=== PATIENT | male | born 1980 | race Caucasian/White ===

== ENCOUNTER 2016-10-06 13:22 | Emergency (ER) | payer BC ==
--- NOTE | 2016-10-06 14:24 | ED CLINICAL REPORT ---
Clinical Report - Physicians/Mid Levels [facility] [address] [place] [address] 10/06/2016 13:23 Patient: BRAULIO GLASS Time Seen: 14:26 Oct 06 2016. Arrived- By private vehicle. Historian- patient. HISTORY OF PRESENT ILLNESS Chief Complaint: HEADACHE. Is still present. 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 Located in the frontal region and region of the left eye. No preceding symptoms, blurred vision or associated nausea. (Generalized headache over the left side, thigh, last 10 days, similar to his previous migraine-like headaches in the past. Patient denies any nausea or vomiting, some light sensitivity, has tried [id number] medications with no relief. Has a future follow-up appointment with his primary care provider. Denies any trauma. Denies neck pain. Denies cough. Denies rhinorrhea or congestion.). REVIEW OF SYSTEMS No fever, sinus pressure, ear pain, sore throat or difficulty breathing. No skin rash. All systems otherwise negative, except as recorded above. SOCIAL HISTORY Never smoker. No alcohol use. ADDITIONAL NOTES The nursing notes have been reviewed. PHYSICAL EXAM Vital Signs: 10/06/2016 13:34 BP: 144/104. HR: 81. RR: 16. O2 saturation: 99%. Temp: 98.4 F. Appearance: Alert. Eyes: Pupils equal, round and reactive to light. Eyes normal inspection. ENT: Nose normal. Neck: Normal inspection. No meningeal signs. CVS: Normal heart rate and rhythm. Heart sounds normal. Respiratory: No respiratory distress. Abdomen: Soft. No abdominal tenderness or organomegaly. Neuro: Oriented X 3. Alert. Mood/affect normal. Cranial nerves normal (as tested). No cerebellar findings. No motor deficit. PROGRESS AND PROCEDURES Course of Care: Ongoing headache for almost 10 days, with history of similar, most consistent with migraine-like headaches, no additional systemic symptoms at this time. Patient drove himself here, wishes to drive home. Suspicion for sever hemorrhage, meningitis, hemorrhage is low. Patient is stable. Symptoms better. Patient/family counseled. Differential Diagnosis: I considered vascular etiology, migraine, cluster headache, vascular dissection, malignant hypertension, cerebral venous thrombosis, bacterial meningitis and encephalitis as a possible cause of headache in this patient. This is a partial list of diagnoses considered. Disposition: Discharged. CLINICAL IMPRESSION Migraine headache. INSTRUCTIONS Do not work today, tomorrow. Warnings: Further evaluation is necessary. Prescription Medications: Zofran (orally disintegrating tablets) 4 mg: take 1 orally every 6 hours. Dispense ten (10). No refill. Fioricet with Codeine: Take 1-2 orally every 4 hours as needed for headache. Dispense twenty (20). No refills. Substitution is permissible. Follow-up: Follow up with your doctor. Understanding of the discharge instructions verbalized by patient. (Electronically signed by Josefina Sims P.A.-C 10/06/2016 14:31)
--- NOTE | 2016-10-06 14:24 | ED ORDER SUMMARY ---
..... Patient: BRAULIO GLASS OrderSheet [facility] VisitID: [id number] [address] [place] [address] 36y, M Registration Date/Time: 10/06/2016 ORDER SHEET Weight: 77.1 kg (stated) Allergies: Naproxen GENERAL ORDERS: MEDICATION ORDERS: IV FLUIDS: IV NS : initial bolus 1000 mL (1000 mL/hr), then 1000 mL/hr for X1 (NOW); Raheel (13:42 10/06/2016 EKoroleva P.A.-C) (14:02 ASchmuck) Toradol IV 30 mg (NOW) (13:42 10/06/2016 EKoroleva P.A.-C) (14:02 ASchmuck) Zofran IV 4 mg (NOW) (13:42 10/06/2016 EKoroleva P.A.-C) (14:02 ASchmuck) ORDER SHEET NOTES: [Electronically signed by Ivette Lea (14:26 10/06/2016)] [Electronically signed by Josefina Sims P.A.-C (14:31 10/06/2016)] [Electronically locked/signed by Ivette Lea (14:10/06/2016)]
--- NOTE | 2016-10-06 14:24 | ED CLINICAL REPORT ---
Clinical Report - Physicians/Mid Levels [facility] [address] [place] [address] 10/06/2016 13:23 Patient: BRAULIO GLASS Time Seen: 14:26 Oct 06 2016. Arrived- By private vehicle. Historian- patient. HISTORY OF PRESENT ILLNESS Chief Complaint: HEADACHE. Is still present. 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 Located in the frontal region and region of the left eye. No preceding symptoms, blurred vision or associated nausea. (Generalized headache over the left side, thigh, last 10 days, similar to his previous migraine-like headaches in the past. Patient denies any nausea or vomiting, some light sensitivity, has tried [id number] medications with no relief. Has a future follow-up appointment with his primary care provider. Denies any trauma. Denies neck pain. Denies cough. Denies rhinorrhea or congestion.). REVIEW OF SYSTEMS No fever, sinus pressure, ear pain, sore throat or difficulty breathing. No skin rash. All systems otherwise negative, except as recorded above. SOCIAL HISTORY Never smoker. No alcohol use. ADDITIONAL NOTES The nursing notes have been reviewed. PHYSICAL EXAM Vital Signs: 10/06/2016 13:34 BP: 144/104. HR: 81. RR: 16. O2 saturation: 99%. Temp: 98.4 F. Appearance: Alert. Eyes: Pupils equal, round and reactive to light. Eyes normal inspection. ENT: Nose normal. Neck: Normal inspection. No meningeal signs. CVS: Normal heart rate and rhythm. Heart sounds normal. Respiratory: No respiratory distress. Abdomen: Soft. No abdominal tenderness or organomegaly. Neuro: Oriented X 3. Alert. Mood/affect normal. Cranial nerves normal (as tested). No cerebellar findings. No motor deficit. PROGRESS AND PROCEDURES Course of Care: Ongoing headache for almost 10 days, with history of similar, most consistent with migraine-like headaches, no additional systemic symptoms at this time. Patient drove himself here, wishes to drive home. Suspicion for sever hemorrhage, meningitis, hemorrhage is low. Patient is stable. Symptoms better. Patient/family counseled. Differential Diagnosis: I considered vascular etiology, migraine, cluster headache, vascular dissection, malignant hypertension, cerebral venous thrombosis, bacterial meningitis and encephalitis as a possible cause of headache in this patient. This is a partial list of diagnoses considered. Disposition: Discharged. CLINICAL IMPRESSION Migraine headache. INSTRUCTIONS Do not work today, tomorrow. Warnings: Further evaluation is necessary. Prescription Medications: Zofran (orally disintegrating tablets) 4 mg: take 1 orally every 6 hours. Dispense ten (10). No refill. Fioricet with Codeine: Take 1-2 orally every 4 hours as needed for headache. Dispense twenty (20). No refills. Substitution is permissible. Follow-up: Follow up with your doctor. Understanding of the discharge instructions verbalized by patient. (Electronically signed by Josefina Sims P.A.-C 10/06/2016 14:31)
--- NOTE | 2016-10-06 14:24 | ED ORDER SUMMARY ---
..... Patient: BRAULIO GLASS OrderSheet [facility] VisitID: [id number] [address] [place] [address] 36y, M Registration Date/Time: 10/06/2016 ORDER SHEET Weight: 77.1 kg (stated) Allergies: Naproxen GENERAL ORDERS: MEDICATION ORDERS: IV FLUIDS: IV NS : initial bolus 1000 mL (1000 mL/hr), then 1000 mL/hr for X1 (NOW); Raheel (13:42 10/06/2016 EKoroleva P.A.-C) (14:02 ASchmuck) Toradol IV 30 mg (NOW) (13:42 10/06/2016 EKoroleva P.A.-C) (14:02 ASchmuck) Zofran IV 4 mg (NOW) (13:42 10/06/2016 EKoroleva P.A.-C) (14:02 ASchmuck) ORDER SHEET NOTES: [Electronically signed by Ivette Lea (14:26 10/06/2016)] [Electronically signed by Josefina Sims P.A.-C (14:31 10/06/2016)] [Electronically locked/signed by Ivette Lea (14:10/06/2016)]
--- NOTE | 2016-10-06 14:24 | ED NURSING NOTES ---
Clinical Report - Nurses [facility] [address] [place] [address] 10/06/2016 13:23 Patient: BRAULIO GLASS TRIAGE Triage time 13:28 Oct 06 2016. Acuity: LEVEL 4. Chief Complaint: MIGRAINE HEADACHE. 13:34 10/06/16. Alert. No acute distress. SEPSIS SCREEN: Sepsis Screen. Negative (no infection suspected/documented). NAVYA COMA SCORE: [place] Coma Scale: 15- eyes open spontaneously (4); best verbal response- oriented x 4 (5); best motor response- obeys commands (6). --13:34 Ivette Lea 13:34 10/06/16. BP: 144/104. HR: 81. RR: 16. O2 saturation: 99%. Temp: 98.4 F. Pain level now 04/05. --13:34 Ivette Lea. Weight: 77.1 kg stated. Height/Length: 70 inches Per Patient. BMI: 24.4. --13:33 Ivette Lea. Medications None. --13:32 Ivette Lea. Medication/allergy information source: the patient. --13:34 Ivette Lea. Allergies Naproxen. ("made me feel like I had the flu") --13:32 Ivette Lea. History Arrived by private vehicle. Historian: patient. Unaccompanied. Primary physician ([facility]). This started About a week and a half ago. ( Pt reports that he is having a migraine today. He normally gets headaches, but today's is more intense. Has had a few concussions in the past. Has been seen by PCP for this issue before. Reports pressure behind his eyes, more on the left side. Is nauseous and has been vomiting. Believes that his speech has been slurred, which has happened before, "only with the bad ones." Has blurred vision.). He has had nausea and vomiting. No weakness, numbness, fever or sinus pain. Treatment ARTISTS' MODEL: (3 200 mg aspirin). PAST MEDICAL HX: Headaches. Head injury. No history of diabetes mellitus or hypertension. Immunizations: status is unknown. SOCIAL HX: Never smoker. No alcohol use or drug use. No recent travel. He has had contact with a sick individual. (daughter had cold). FALL RISK ASSESSMENT: Fall risk assessment completed. No fall risk identified. NUTRITIONAL RISK ASSESSMENT: The nutritional risk assessment revealed no deficiencies. FUNCTIONAL ASSESSMENT: Functional assessment: no impairments noted. LEARNING NEEDS ASSESSMENT: The learning needs assessment revealed no barriers. SKIN INTEGRITY ASSESSMENT: Skin integrity risk assessment completed. No skin integrity risk identified. --13:34 Ivette Lea. PROBLEMS: Migraine Headache. Back Pain. Low back pain, disc injury . Dental Pain. Abscess. Dental Caries. Hernia. --13:33 Ivette Lea. ADDITIONAL SURGERIES: Hernia Repair. --13:33 Ivette Lea. Interventions ID band on patient. --13:34 Ivette Lea. PHYSICAL ASSESSMENT 13:35 10/06/16. Ambulatory to room. GENERAL / NEURO / PSYCH: Alert. Oriented X 4. Appears in no acute distress. Speech within normal limits. HEENT: No facial asymmetry noted. Pupils equal, round and reactive to light. RESPIRATORY: Respirations not labored. CVS: Capillary refill less than 2 seconds. GI / : Abdomen soft and nontender. SKIN: Skin is warm and dry. --13:35 Ivette Lea. NURSING PROGRESS NOTES 13:35 10/06/16. The plan of care for this patient has been created. Head of bed elevated. Reassurance given. Lights dimmed. Two patient identifiers checked. Call light placed in reach. Side rails up x 1. Bed placed in lowest position. Brakes of bed on. Patient ready for evaluation- chart flagged and ED physician and PA notified. --13:35 Ivette Lea 13:51 10/06/2016 Site #1 started via IV in the right forearm with an 20g angiocath, with aseptic technique and good blood return; one attempt. Blood drawn: rainbow set. Labeled in the presence of the patient and sent to the lab. Saline lock flushed with 10 mL saline. --14:01 Ivette Lea 13:57 10/06/2016 Started bag #1 1000 mL IV Fluids IV NS (Saline); at 1000 mL/hr over 1 hour(s) via site #1 via IV pump. Allergies verified and confirmed 5 rights. IV patency established. IV site checked: no pain, redness, or swelling. IV flushed thoroughly pre- and post-medication administration. --14:02 Ivette Lea 13:59 10/06/2016 Zofran (Ondansetron HCl) IVP 4 mg given over 1 minute(s) via site #1. Allergies verified and confirmed 5 rights. IV patency established. IV site checked: no pain, redness, or swelling. IV flushed thoroughly pre- and post-medication administration. IVP given by RN. --14: Ivette Lea 14:10/06/2016 Toradol IVP 30 mg given over 1 minute(s) via site #1. Allergies verified and confirmed 5 rights. IV patency established. IV site checked: no pain, redness, or swelling. IV flushed thoroughly pre- and post-medication administration. IVP given by RN. --14: Ivette Lea 14:22 10/06/2016 Site #1 removed upon discharge. Catheter intact. Pressure dressing applied. --14:22 Ivette Lea 14:22 10/06/2016 IV Fluids IV NS Discontinued: bag #1 discontinued upon discharge. Total amount infused: 250 mL. IV patency established. IV site checked: no pain, redness, or swelling. IV flushed thoroughly. (Verbal order from ALYSE). --14:22 Ivette Lea. DISPOSITION / DISCHARGE 14:24 10/06/16. Departure time: 14:24 Oct 06 2016. Condition at departure: improved. The goals identified in the patient's plan of care were met. No learning barriers present. Discharge instructions provided and reviewed with the patient. Reviewed warnings (Patient verbalized understanding of sedation warning for Rx medications. Pt verbalized awareness of warning s/sx listed in dc paperwork.). Reviewed medication(s) side effects, precautions, dosing and course information. Prescription(s) given to the patient (Fioricet with codeine, zofran). Treatments reviewed. Reviewed referral to a primary care physician for followup. Patient verbalized understanding. Written instructions provided in Ecuadorean. The patient was discharged by the physician operations assistant. He was discharged home and unaccompanied at time of discharge. He left the Emergency Department ambulatory and via private vehicle. Patient driving. FALL RISK ASSESSMENT: Fall risk assessment completed. No fall risk identified. --14:24 Ivette Lea 14:23 10/06/16. BP: deferred. HR: deferred. RR: deferred. O2 saturation: deferred. Temp: deferred. Pain level now: 12/04. 13:28 10/06/16. BP: 144/104. HR: 81. RR: 16. O2 saturation: 99%. Temp: 98.4 F. Pain level now 04/05. --14:24 Ivette Lea. Locked/Released at 10/06/2016 14:26 by Ivette Lea,
--- NOTE | 2016-10-06 14:24 | ED NURSING NOTES ---
Clinical Report - Nurses [facility] [address] [place] [address] 10/06/2016 13:23 Patient: BRAULIO GLASS TRIAGE Triage time 13:28 Oct 06 2016. Acuity: LEVEL 4. Chief Complaint: MIGRAINE HEADACHE. 13:34 10/06/16. Alert. No acute distress. SEPSIS SCREEN: Sepsis Screen. Negative (no infection suspected/documented). NAVYA COMA SCORE: [place] Coma Scale: 15- eyes open spontaneously (4); best verbal response- oriented x 4 (5); best motor response- obeys commands (6). --13:34 Ivette Lea 13:34 10/06/16. BP: 144/104. HR: 81. RR: 16. O2 saturation: 99%. Temp: 98.4 F. Pain level now 04/05. --13:34 Ivette Lea. Weight: 77.1 kg stated. Height/Length: 70 inches Per Patient. BMI: 24.4. --13:33 Ivette Lea. Medications None. --13:32 Ivette Lea. Medication/allergy information source: the patient. --13:34 Ivette Lea. Allergies Naproxen. ("made me feel like I had the flu") --13:32 Ivette Lea. History Arrived by private vehicle. Historian: patient. Unaccompanied. Primary physician ([facility]). This started About a week and a half ago. ( Pt reports that he is having a migraine today. He normally gets headaches, but today's is more intense. Has had a few concussions in the past. Has been seen by PCP for this issue before. Reports pressure behind his eyes, more on the left side. Is nauseous and has been vomiting. Believes that his speech has been slurred, which has happened before, "only with the bad ones." Has blurred vision.). He has had nausea and vomiting. No weakness, numbness, fever or sinus pain. 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 PAST MEDICAL HX: Headaches. Head injury. No history of diabetes mellitus or hypertension. Immunizations: status is unknown. SOCIAL HX: Never smoker. No alcohol use or drug use. No recent travel. He has had contact with a sick individual. (daughter had cold). FALL RISK ASSESSMENT: Fall risk assessment completed. No fall risk identified. NUTRITIONAL RISK ASSESSMENT: The nutritional risk assessment revealed no deficiencies. FUNCTIONAL ASSESSMENT: Functional assessment: no impairments noted. LEARNING NEEDS ASSESSMENT: The learning needs assessment revealed no barriers. SKIN INTEGRITY ASSESSMENT: Skin integrity risk assessment completed. No skin integrity risk identified. --13:34 Ivette Lea. PROBLEMS: Migraine Headache. Back Pain. Low back pain, disc injury . Dental Pain. Abscess. Dental Caries. Hernia. --13:33 Ivette Lea. ADDITIONAL SURGERIES: Hernia Repair. --13:33 Ivette Lea. Interventions ID band on patient. --13:34 Ivette Lea. PHYSICAL ASSESSMENT 13:35 10/06/16. Ambulatory to room. GENERAL / NEURO / PSYCH: Alert. Oriented X 4. Appears in no acute distress. Speech within normal limits. HEENT: No facial asymmetry noted. Pupils equal, round and reactive to light. RESPIRATORY: Respirations not labored. CVS: Capillary refill less than 2 seconds. GI / : Abdomen soft and nontender. SKIN: Skin is warm and dry. --13:35 Ivette Lea. NURSING PROGRESS NOTES 13:35 10/06/16. The plan of care for this patient has been created. Head of bed elevated. Reassurance given. Lights dimmed. Two patient identifiers checked. Call light placed in reach. Side rails up x 1. Bed placed in lowest position. Brakes of bed on. Patient ready for evaluation- chart flagged and ED physician and PA notified. --13:35 Ivette Lea 13:51 10/06/2016 Site #1 started via IV in the right forearm with an 20g angiocath, with aseptic technique and good blood return; one attempt. Blood drawn: rainbow set. Labeled in the presence of the patient and sent to the lab. Saline lock flushed with 10 mL saline. --14:01 Ivette Lea 13:57 10/06/2016 Started bag #1 1000 mL IV Fluids IV NS (Saline); at 1000 mL/hr over 1 hour(s) via site #1 via IV pump. Allergies verified and confirmed 5 rights. IV patency established. IV site checked: no pain, redness, or swelling. IV flushed thoroughly pre- and post-medication administration. --14:02 Ivette Lea 13:59 10/06/2016 Zofran (Ondansetron HCl) IVP 4 mg given over 1 minute(s) via site #1. Allergies verified and confirmed 5 rights. IV patency established. IV site checked: no pain, redness, or swelling. IV flushed thoroughly pre- and post-medication administration. IVP given by RN. --14: Ivette Lea 14:10/06/2016 Toradol IVP 30 mg given over 1 minute(s) via site #1. Allergies verified and confirmed 5 rights. IV patency established. IV site checked: no pain, redness, or swelling. IV flushed thoroughly pre- and post-medication administration. IVP given by RN. --14: Ivette Lea 14:22 10/06/2016 Site #1 removed upon discharge. Catheter intact. Pressure dressing applied. --14:22 Ivette Lea 14:22 10/06/2016 IV Fluids IV NS Discontinued: bag #1 discontinued upon discharge. Total amount infused: 250 mL. IV patency established. IV site checked: no pain, redness, or swelling. IV flushed thoroughly. (Verbal order from ALYSE). --14:22 Ivette Lea. DISPOSITION / DISCHARGE 14:24 10/06/16. Departure time: 14:24 Oct 06 2016. Condition at departure: improved. The goals identified in the patient's plan of care were met. No learning barriers present. Discharge instructions provided and reviewed with the patient. Reviewed warnings (Patient verbalized understanding of sedation warning for Rx medications. Pt verbalized awareness of warning s/sx listed in dc paperwork.). Reviewed medication(s) side effects, precautions, dosing and course information. Prescription(s) given to the patient (Fioricet with codeine, zofran). Treatments reviewed. Reviewed referral to a primary care physician for followup. Patient verbalized understanding. Written instructions provided in Andorran. The patient was discharged by the physician assistant director of admissions. He was discharged home and unaccompanied at time of discharge. He left the Emergency Department ambulatory and via private vehicle. Patient driving. FALL RISK ASSESSMENT: Fall risk assessment completed. No fall risk identified. --14:24 Ivette Lea 14:23 10/06/16. BP: deferred. HR: deferred. RR: deferred. O2 saturation: deferred. Temp: deferred. Pain level now: 12/04. 13:28 10/06/16. BP: 144/104. HR: 81. RR: 16. O2 saturation: 99%. Temp: 98.4 F. Pain level now 04/05. --14:24 Ivette Lea. Locked/Released at 10/06/2016 14:26 by Ivette Lea,
--- NOTE | 2016-10-06 14:31 | ED MAR SUMMARY ---
..... Medication Administration Record [facility] [address] [place] [address] Patient: BRAULIO GLASS Visit ID: [id number] 36y, M Weight: 77.1 kg Height/Length: 70 in BMI: 24.4 ALLERGIES: Naproxen Start 13:57 10/06/2016 Ivette Lea,, Stop 14:22 10/06/2016 Ivette Lea, Medication Administered: IV NS (SALINE), Dose: IV Fluids over 1 hour(s), Rate: 1000 mL/hr, Dispensed: 1000 mL bag, Site: #1 right forearm. Medication Ordered: IV NS : initial bolus 1000 mL (1000 mL/hr), then 1000 mL/hr for X1 (NOW); Raheel. Given 13:59 10/06/2016 Ivette Lea, Medication Administered: ZOFRAN [IVP] (ONDANSETRON HCL), Dose: 4 mg IVP over 1 minute(s), Site: #1 right forearm. Medication Ordered: Zofran IV 4 mg (NOW). Given 14:01 10/06/2016 Ivette Lea, Medication Administered: TORADOL [IVP], Dose: 30 mg IVP over 1 minute(s), Site: #1 right forearm. Medication Ordered: Toradol IV 30 mg (NOW).
--- NOTE | 2016-10-06 14:31 | ED MED RECONCILIATION SUMMARY ---
Patient: BRAULIO GLASS Medication Reconciliation Report [facility] VisitID: [id number] [address] [place] [address] 36y, M Registration Date/Time: 10/06/2016 Weight: 77.1 kg Height/Length: 70 in. BMI: 24.4 ALLERGIES: Naproxen The patient's Home Medications are listed below: NONE. The source(s) of the original Home Medication information: patient The following Medications were given to the patient in the Emergency Department: IV NS IV Fluids bolus 0, then 1000 mL/hr, administered: 10/06/2016 1:57:00 PM Zofran [IVP] IVP 4 mg, administered: 10/06/2016 1:59:00 PM Toradol [IVP] IVP 30 mg, administered: 10/06/2016 2:01:00 PM The following Medications were prescribed to the patient: Zofran (orally disintegrating tablets) 4 mg: take 1 orally every 6 hours. Dispense ten (10). No refill. -- Josefina Sims, P.A.-Jerardo Fioricet with Codeine: Take 1-2 orally every 4 hours as needed for headache. Dispense twenty (20). No refills. Substitution is permissible. -- Josefina Sims, P.A.-C
--- NOTE | 2016-10-06 14:31 | ED DISCHARGE INSTRUCTIONS ---
Patient: BRAULIO GLASS General Instructions VisitID: [id number] [address] [place] [address] 36y, M Registration Date/Time: 10/06/2016 Migraine headache. INSTRUCTIONS Do not work today, tomorrow. Warnings: Further evaluation is necessary. Prescription Medications: Zofran (orally disintegrating tablets) 4 mg: take 1 orally every 6 hours. Dispense ten (10). No refill. Fioricet with Codeine: Take 1-2 orally every 4 hours as needed for headache. Dispense twenty (20). No refills. Substitution is permissible. Follow-up: Follow up with your doctor. Understanding of the discharge instructions verbalized by patient. ADDITIONAL INFORMATION Ondansetron Hydrochloride Oral tablet What is this medicine? ONDANSETRON (on ERNESTO se opal) is used to treat nausea and vomiting caused by chemotherapy. It is also used to prevent or treat nausea and vomiting after surgery. How should I use this medicine? Take this medicine by mouth with a glass of water. Follow the directions on your prescription label. Take your doses at regular intervals. Do not take your medicine more often than directed. Talk to your manager provider relations regarding the use of this medicine in children. Special care may be needed. What side effects may I notice from receiving this medicine? Side effects that you should report to your doctor or health medicare specialist as soon as possible: allergic reactions like skin rash, itching or hives, swelling of the face, lips or tongue breathing problems dizziness fast or irregular heartbeat feeling faint or lightheaded, falls fever and chills swelling of the hands or feet tightness in the chest Side effects that usually do not require medical attention (report to your doctor or health medicare specialist if they continue or are bothersome): constipation or diarrhea headache What may interact with this medicine? Do not take this medicine with any of the following medications: -apomorphine -cisapride -dofetilide -dronedarone -pimozide -thioridazine -ziprasidone This medicine may also interact with the following medications: -carbamazepine -phenytoin -rifampicin -tramadol -other medicines that prolong the QT interval (cause an abnormal heart rhythm) What if I miss a dose? If you miss a dose, take it as soon as you can. If it is almost time for your next dose, take only that dose. Do not take double or extra doses. Where should I keep my medicine? Keep out of the reach of children. Store between 2 and 30 degrees C (36 and 86 degrees F). Throw away any unused medicine after the expiration date. What should I tell my health care provider before I take this medicine? They need to know if you have any of these conditions: heart disease history of irregular heartbeat liver disease low levels of magnesium or potassium in the blood an unusual or allergic reaction to ondansetron, granisetron, other medicines, foods, dyes, or preservatives or trying to get breast-feeding What should I watch for while using this medicine? Check with your doctor or health medicare specialist right away if you have any sign of an allergic reaction. You have been given the following additional information: Ondansetron Hydrochloride Oral tablet Do not work today, tomorrow. (Electronically signed by Josefina Sims P.A.-C 10/06/2016 14:31)
--- NOTE | 2016-10-06 14:31 | ED MED RECONCILIATION SUMMARY ---
Patient: BRAULIO GLASS Medication Reconciliation Report [facility] VisitID: [id number] [address] [place] [address] 36y, M Registration Date/Time: 10/06/2016 Weight: 77.1 kg Height/Length: 70 in. BMI: 24.4 ALLERGIES: Naproxen The patient's Home Medications are listed below: NONE. The source(s) of the original Home Medication information: patient The following Medications were given to the patient in the Emergency Department: IV NS IV Fluids bolus 0, then 1000 mL/hr, administered: 10/06/2016 1:57:00 PM Zofran [IVP] IVP 4 mg, administered: 10/06/2016 1:59:00 PM Toradol [IVP] IVP 30 mg, administered: 10/06/2016 2:01:00 PM The following Medications were prescribed to the patient: Zofran (orally disintegrating tablets) 4 mg: take 1 orally every 6 hours. Dispense ten (10). No refill. -- Josefina Sims, P.A.-Jerardo Fioricet with Codeine: Take 1-2 orally every 4 hours as needed for headache. Dispense twenty (20). No refills. Substitution is permissible. -- Josefina Sims, P.A.-C
--- NOTE | 2016-10-06 14:31 | ED MAR SUMMARY ---
..... Medication Administration Record [facility] [address] [place] [address] Patient: BRAULIO GLASS Visit ID: [id number] 36y, M Weight: 77.1 kg Height/Length: 70 in BMI: 24.4 ALLERGIES: Naproxen Start 13:57 10/06/2016 Ivette Lea,, Stop 14:22 10/06/2016 Ivette Lea, Medication Administered: IV NS (SALINE), Dose: IV Fluids over 1 hour(s), Rate: 1000 mL/hr, Dispensed: 1000 mL bag, Site: #1 right forearm. Medication Ordered: IV NS : initial bolus 1000 mL (1000 mL/hr), then 1000 mL/hr for X1 (NOW); Raheel. Given 13:59 10/06/2016 Ivette Lea, Medication Administered: ZOFRAN [IVP] (ONDANSETRON HCL), Dose: 4 mg IVP over 1 minute(s), Site: #1 right forearm. Medication Ordered: Zofran IV 4 mg (NOW). Given 14:01 10/06/2016 Ivette Lea, Medication Administered: TORADOL [IVP], Dose: 30 mg IVP over 1 minute(s), Site: #1 right forearm. Medication Ordered: Toradol IV 30 mg (NOW).
--- NOTE | 2016-10-06 14:31 | ED DISCHARGE INSTRUCTIONS ---
Patient: BRAULIO GLASS General Instructions [facility] VisitID: [id number] [address] [place] [address] 36y, M Registration Date/Time: 10/06/2016 Migraine headache. INSTRUCTIONS Do not work today, tomorrow. Warnings: Further evaluation is necessary. Prescription Medications: Zofran (orally disintegrating tablets) 4 mg: take 1 orally every 6 hours. Dispense ten (10). No refill. Fioricet with Codeine: Take 1-2 orally every 4 hours as needed for headache. Dispense twenty (20). No refills. Substitution is permissible. Follow-up: Follow up with your doctor. Understanding of the discharge instructions verbalized by patient. ADDITIONAL INFORMATION Ondansetron Hydrochloride Oral tablet What is this medicine? ONDANSETRON (on ERNESTO se opal) is used to treat nausea and vomiting caused by chemotherapy. It is also used to prevent or treat nausea and vomiting after surgery. How should I use this medicine? Take this medicine by mouth with a glass of water. Follow the directions on your prescription label. Take your doses at regular intervals. Do not take your medicine more often than directed. Talk to your 1 year olds preschool teacher regarding the use of this medicine in children. Special care may be needed. What side effects may I notice from receiving this medicine? Side effects that you should report to your doctor or health medical care evaluation specialist as soon as possible: allergic reactions like skin rash, itching or hives, swelling of the face, lips or tongue breathing problems dizziness fast or irregular heartbeat feeling faint or lightheaded, falls fever and chills swelling of the hands or feet tightness in the chest Side effects that usually do not require medical attention (report to your doctor or health medical care evaluation specialist if they continue or are bothersome): constipation or diarrhea headache What may interact with this medicine? Do not take this medicine with any of the following medications: -apomorphine -cisapride -dofetilide -dronedarone -pimozide -thioridazine -ziprasidone This medicine may also interact with the following medications: -carbamazepine -phenytoin -rifampicin -tramadol -other medicines that prolong the QT interval (cause an abnormal heart rhythm) What if I miss a dose? If you miss a dose, take it as soon as you can. If it is almost time for your next dose, take only that dose. Do not take double or extra doses. Where should I keep my medicine? Keep out of the reach of children. Store between 2 and 30 degrees C (36 and 86 degrees F). Throw away any unused medicine after the expiration date. What should I tell my health care provider before I take this medicine? They need to know if you have any of these conditions: heart disease history of irregular heartbeat liver disease low levels of magnesium or potassium in the blood an unusual or allergic reaction to ondansetron, granisetron, other medicines, foods, dyes, or preservatives or trying to get breast-feeding What should I watch for while using this medicine? Check with your doctor or health medical care evaluation specialist right away if you have any sign of an allergic reaction. You have been given the following additional information: Ondansetron Hydrochloride Oral tablet Do not work today, tomorrow. (Electronically signed by Josefina Sims P.A.-C 10/06/2016 14:31)
== END 2016-10-06 14:21 | disposition home or self-care (01) ==
LOC: ED SRH 13:22
DX: G43.009 Migraine without aura, not intractable, without status migrainosus (principal); Z88.8 Allergy status to other drugs, medicaments and biological substances

== ENCOUNTER 2016-11-24 10:28 | Emergency (ER) | payer BC ==
--- NOTE | 2016-11-24 12:28 | DIAGNOSTIC IMAGING REPORT ---
PROCEDURE: ABDOMEN/PELVIS WITH CONTRAST CLINICAL INDICATION: ABDOMINAL PAIN TECHNIQUE: 100 ml of Isovue 300 were injected intravenously and axial images were obtained of the abdomen and pelvis with sagittal and coronal reformations. COMPARISON: None. FINDINGS: ABDOMEN: Clear lung bases. Normal sized heart. No hiatal hernia. The liver is diffusely moderately hypoechoic and mildly enlarged. 2 mm nonobstructing calcification in the lower pole of the right kidney. The gallbladder, adrenal glands, left kidney, pancreas and spleen are normal. The abdominal aorta is normal in its course and caliber. There are no suspicious calcifications, retroperitoneal adenopathy or masses. The stomach, upper bowel loops, and mesentery are normal. Intact anterior abdominal wall. No free fluid or inflammation. PELVIS: The appendix was not well visualized but there is no inflammation in the right lower quadrant. The pelvic small bowel loops are normal. Increased amount of stool in the colon, particularly in the cecum, and rectum. No pericolonic inflammation. In the intraperitoneal right inguinal region, there is an irregular, somewhat ill-defined, homogeneous low density mass measuring approximately 2.9 x 3.1 x 2.3 cm, probably a mesh plug. No evidence of right inguinal hernia. Trace amount of fat in the left inguinal canal. No owen herniation. The prostate gland, seminal vesicles, urinary bladder, and pelvic vessels are normal. No adenopathy, free fluid, or pelvic mass. Intact osseous structures. IMPRESSION: 1. Right inguinal hernia repair with mesh plug. No evidence of recurrent herniation. 2. No CT evidence of acute appendicitis. 3. Minor hepatomegaly and hepatic steatosis. 4. Nonobstructing 2 mm right lower pole intrarenal calculus. 5. Findings called to the emergency room. All CT scans at this facility use dose modulation, iterative reconstruction, and/or weight-based dosing when appropriate to reduce radiation dose to as low as reasonably achievable.
--- NOTE | 2016-11-24 13:08 | ED ORDER SUMMARY ---
..... Patient: BRAULIO GLASS OrderSheet [facility] VisitID: [id number] [place] [address] 36y, M Registration Date/Time: 11/24/2016 ORDER SHEET Weight: 79.3 kg (stated) Allergies: No Known Drug Allergy GENERAL ORDERS: CBC w Diff Urgent (10:53 11/24/2016 PHutchinson DO) (Ack 10:54 OHdionicionandez) (11:18 JBest R.N.) CMP Urgent (10:53 11/24/2016 PHutchinson DO) (Ack 10:54 OHdionicionandez) (11:18 JBest R.N.) UA-Culture if indicated Urgent (10:53 11/24/2016 [facility] (Ack 10:55 OHdionicionandez) (11:18 JBest R.N.) Amylase Urgent (10:53 11/24/2016 PHflchinson DO) (Ack 10:55 OHdionicionandez) (11:18 JBest R.N.) Lipase Urgent (10:53 11/24/2016 PHflchinson DO) (Ack 10:55 OHdionicionandez) (11:18 JBest R.N.) PT with INR Urgent (10:53 11/24/2016 utchinson DO) (Ack 10:55 OHdionicionandez) (11:18 JBest R.N.) NPO (10:53 11/24/2016 PHflchinson DO) (Ack 11:15 OHdionicionandez) (11:18 JBest R.N.) CT Abd/Pel w Cont (No) (N/A) (RLQ; had prior inguinal hernia surgery) Urgent (10:53 11/24/2016 PHutchinson DO) (Ack 10:56 OHdionicionandez) (11:18 JBest R.N.) GC/Chlamydia (Penis) (penis) Urgent (13:06 [facility]2016 [facility] (Ack 13:13 OHmichelle) (13:17 JBest R.N.) MEDICATION ORDERS: IV FLUIDS: IV NS : initial bolus 1000 mL (1000 mL/hr), then 250 mL/hr for X4 (NOW) (10:53 11/24/2016 [facility]) (11:30 Emilie R.N.) Zofran IV 4 mg (NOW) (10:53 11/24/2016 [facility]) (Ack 11:39 Emilie R.N.) Dilaudid IV 0.5 mg (may repeat x 2 prn pain) (10:53 11/24/2016 [facility]) (Ack 11:39 Emilie R.N.) ORDER SHEET NOTES: [Electronically signed by Artemio Vuong DO (17:05 11/24/2016)] [Electronically signed by Agnes Bowling R.N. (19:12 11/24/2016)] [Electronically locked/signed by Agnes Bowling R.N. (19:12 11/24/2016)]
--- NOTE | 2016-11-24 13:08 | ED CLINICAL REPORT ---
Clinical Report - Physicians/Mid Levels [facility] [address] [place] [address] 11/24/2016 10:30 Patient: BRAULIO GLASS Time Seen: 10:51. Arrived- By private vehicle. Historian- patient. HISTORY OF PRESENT ILLNESS Chief Complaint: ABDOMINAL PAIN. At its maximum, severity described as moderate. When seen in the E.D., severity described as moderate. Modifying factors- worsened by movement. Relieved by rest. It is described as "pain" and it is described as located in the right lower quadrant and radiating to the groin. This started about 1 week ago and is still present. It was gradual in onset and has been waxing/waning. No nausea, vomiting or diarrhea. (He had mesh placed during hernia repair to the same area as the pain 4 years ago Reports last BM was 1 days ago. Last oral intake by patient was dinner last night. It is described as radiating to the groin). Similar symptoms previously: Recent medical care: The patient was seen recently at this facility in the emergency department. Seen for other problems. Diagnosis: (Migraine WHITE). REVIEW OF SYSTEMS The patient has had constipation and back pain. No black stools, hematemesis, difficulty with urination, urinary frequency or bloody stools. No fever, headache, sore throat, chest pain or difficulty breathing. No cough. The patient has had pain on urination (may have some dysuria, but may be pain radiating to the penis - he is not sure; no penile discharge). Last bowel movement: yesterday. All systems otherwise negative, except as recorded above. PAST HISTORY Dental pain Back pain Kidney stones. Surgeries: Prior abdominal surgery: hernia surgery. Medications: None. Allergies: No Known Drug Allergy. SOCIAL HISTORY Smoker- current status unknown. No alcohol use or drug use. Is a local resident. ADDITIONAL NOTES The nursing notes have been reviewed. PHYSICAL EXAM Vital Signs: 11/24/2016 10:36 BP: 137/93. HR: 75. RR: 16. O2 saturation: 97%. Temp: 98.3 F. Pain level now: 11/03. Appearance: Alert. Oriented X3. No acute distress. Eyes: Pupils equal, round and reactive to light. Eyes normal inspection. No scleral icterus or pale conjunctivae. ENT: Nose normal. Pharynx normal. No pharyngeal erythema or tonsillar exudate. The mucous membranes are not dry. Neck: Normal inspection. Neck supple. CVS: Normal heart rate and rhythm. Heart sounds normal. Pulses normal. Respiratory: No respiratory distress. Breath sounds normal. Abdomen: Soft. Mild tenderness in the right lower quadrant and lower abdomen. Bowel sounds normal. No organomegaly. No mass. No rebound tenderness or guarding. Back: Normal inspection. : Normal genitalia. Testes descended. Skin: Skin warm and dry. Normal skin color. No rash. Normal skin turgor. Extremities: Extremities exhibit normal ROM. No lower extremity edema. Neuro: Oriented X 3. No motor deficit. LABS, X-RAYS, AND EKG Abdominal CT: IMPRESSION: 1. Right inguinal hernia repair with mesh plug. No evidence of recurrent herniation. 2. No CT evidence of acute appendicitis. 3. Minor hepatomegaly and hepatic steatosis. 4. Nonobstructing 2 mm right lower pole intrarenal calculus. Study type: abdomen and pelvis. Abdominal CT performed with IV contrast. The study was independently viewed by me, interpreted by the radiologist and discussed with the radiologist. Laboratory Tests: UA-Culture if indicated: (NADJA: 11/24/2016 10:40) ( MsgRcvd 11/24/2016 11:22) Final results Test Result Flag Units (Reference) URINE COLOR YELLOW URINE APPEARANCE CLEAR URINE GLUCOSE NEGATIVE (NEGATIVE) URINE BILIRUBIN NEGATIVE (NEGATIVE) URINE KETONE NEGATIVE (NEGATIVE) URINE SPECIFIC GRAVITY 1.015 (1.010-1.030) URINE PH 7.0 (5.0-8.0) URINE PROTEIN NEGATIVE (NEGATIVE) URINE UROBILINOGEN 2.0 EU/dL (0.2-1.0) The urobilinogen reagent area may react with interferingsubstances known to react with Mechelle's reagent such asp-aminosalicylic acid and sulfonamides. Atypical colorreactions may be obtained in the presence of highconcentrations of p-aminobenzoic acid. The absence ofurobilinogen cannot be determined with this test. URINE NITRITE NEGATIVE (NEGATIVE) URINE BLOOD NEGATIVE (NEGATIVE) URINE LEUK ESTERASE NEGATIVE (NEGATIVE) URINE RBC NONE SEEN rbc/hpf (0-1) URINE WBC NONE SEEN wbc/hpf (0-1) URINE EPITHELIAL CELLS NONE SEEN EPI/hpf (0-5) URINE BACTERIA NONE SEEN (NONE SEEN) URINE COMMENT CULT NOT INDICATED 1+ AMORPHOUS CRYSTALSURINE CULTURES ARE SET-UP BASED ON THE FOLLOWING CRITERIA:POSITIVE NITRITEPOSITIVE LEUKOCYTE ESTERASEGREATER THAN 10 WHITE BLOOD CELLSMODERATE (2+) OR GREATER BACTERIA CBC w Diff: (NADJA: 11/24/2016 11:10) ( [facility] 11/24/2016 11:26) Final results Test Result Flag Units (Reference) WHITE BLOOD COUNT 6.6 K/uL (4.5-11.5) RED BLOOD COUNT 5.18 M/uL (4.50-5.90) HEMOGLOBIN 15.9 gm/dL (13.5-17.5) HEMATOCRIT 46.8 % (41.0-53.0) MEAN CELL VOLUME 90 fL (80-100) MEAN CORPUSCULAR HGB 31 pg (26-34) MEAN CORPUSCULAR HGB CONC 34 g/dL (31-37) RED CELL DISTRIBUTION WIDTH 12.4 % (11.6-14.8) PLATELET COUNT 288 K/uL (150-400) NEUTROPHIL % 49.6 L % (50-75) LYMPH % 39.3 % (25-40) MONO % 9.0 % (3-14) EOSINOPHIL % 1.8 % (0-4) BASOPHIL % 0.3 % (0-2) PT with INR: (NADJA: 11/24/2016 11:10) ( [facility] 11/24/2016 11:31) Final results Test Result Flag Units (Reference) INR 0.9 (0.8-1.2) Low Intensity Therapy: INR 1.5-2.0 PT range 18.5-23.1Mod.Intensity Therapy: INR 2.0-3.0 PT range 23.1-31.5High Intensity Therapy: INR 2.5-3.5 PT range 27.4-35.5High Intensity Therapy 2: INR 3.0-4.0 PT range 31.5-39.3 CMP: (NADJA: 11/24/2016 11:10) ( MsgRcvd 11/24/2016 11:35) Final results Test Result Flag Units (Reference) GLUCOSE 93 mg/dL (70-110) BUN 10 mg/dL (7-18) CREATININE 0.9 mg/dL (0.6-1.3) Estimated GFR >60 mL/min Estimated GFR- >60 mL/min Note: Persistent reduction over 3 months in eGFR<60 mL/min/1.73 m2 defines CKD. Patients with eGFR values>=60 mL/min/1.73 m2 may also have CKD if evidence ofpersistent proteinuria. Additional information may be foundat www.kidney.org. SODIUM 138 mmol/L (136-145) POTASSIUM 4.0 mmol/L (3.5-5.1) CHLORIDE 103 mmol/L (98-107) CARBON DIOXIDE 26 mmol/L (21-32) CALCIUM 9.3 mg/dL (8.5-10.1) TOTAL PROTEIN 8.0 g/dL (6.4-8.2) ALBUMIN 4.3 g/dL (3.3-5.0) BILIRUBIN, TOTAL 0.6 mg/dL (0.0-1.0) ALKALINE PHOSPHATASE 80 U/L (46-116) AST (SGOT) 26 U/L (15-37) ALT (SGPT) 60 U/L (12-78) LIPASE 89 U/L (73-393) AMYLASE 55 U/L (25-115) . Microbiology: Urethral culture ordered (GC culture and chlamydia culture). Pulse Oximetry: 11/24/2016 10:36 O2 saturation: 97%. (FIO2 - room air). Interpretation: normal. PROGRESS AND PROCEDURES Course of Care: Normal Saline 1 liter IVPB given. Azithromycin 1 gm PO given. Zofran 4 mg IVP given. Ceftriaxone 500mg IM given. Dilaudid 0.5 mg IVP given. 13:06 11/24/16. Patient is stable. Physical exam findings are improved. Symptoms much better. Pain may be due to the mesh in the RLQ - hernia repair area. No signs of significant inflammation or recurrent hernia. Appendix is not well seen, but there is certainly no sign of appendicitis on CT. He has evident constipation as well. He has some symptoms of discomfort in the penis - may have STD (unprotected sex). He may also have had a recent kidney stone, but this is not evident on his CT or UA now and with mild persistent pain in the RLQ area, this is not due to a current kidney stone (would have passed). Patient/family counseled. Old ED records reviewed. Disposition: Discharged. Condition: stable and improved. CLINICAL IMPRESSION Acute right lower quadrant abdominal pain of unknown cause. Possible constipation Suspect pain due to irritation from prior hernia mesh. INSTRUCTIONS Do not work for three days. Drink plenty of fluids. Warnings: Further evaluation is necessary in order to recheck abnormal lab, obtain test results, conduct further tests and assess the possibility of serious illness. It is very important to follow up with a physician. CONTROLLED SUBSTANCE WARNINGS. GENERAL WARNINGS: Return or contact your physician immediately if your condition worsens or changes unexpectedly, if not improving as expected, or if other problems arise. Prescription Medications: Hydrocodone/APAP 5mg / 325mg: take 1 orally every 8 hours as needed for pain. Dispense ten (10). No refill. Ibuprofen 600mg tablets: take 1 tablet orally every 8 hours as needed for pain. Dispense thirty (30). No refills. Follow-up with: Melo Guaman MD, Internal Medicine, , [facility], [address] [place] [address] Follow up. Call for the next available appointment. Reason for referral: There are new providers taking over for Dr Guaman and Robert at this clinic. There are also other Located within [facility]. Follow-up with: Artemio Moseley MD, General Surgeon, , [facility], [address] [place] [address] Follow up in about three days. (Electronically signed by Artemio Vuong DO 11/24/2016 17:05)
--- NOTE | 2016-11-24 13:08 | ED ORDER SUMMARY ---
..... Patient: BRAULIO GLASS OrderSheet [facility] VisitID: [id number] [place] [address] 36y, M Registration Date/Time: 11/24/2016 ORDER SHEET Weight: 79.3 kg (stated) Allergies: No Known Drug Allergy GENERAL ORDERS: CBC w Diff Urgent (10:53 11/24/2016 PHutchinson DO) (Ack 10:54 OHdionicionandez) (11:18 JBest R.N.) CMP Urgent (10:53 11/24/2016 PHutchinson DO) (Ack 10:54 OHdionicionandez) (11:18 JBest R.N.) UA-Culture if indicated Urgent (10:53 [facility]/24/2016 [facility] (Ack 10:55 OHdionicionandez) (11:18 JBest R.N.) Amylase Urgent (10:53 11/24/2016 PHwichinson DO) (Ack 10:55 OHdionicionandez) (11:18 JBest R.N.) Lipase Urgent (10:53 11/24/2016 PHwichinson DO) (Ack 10:55 OHdionicionandez) (11:18 JBest R.N.) PT with INR Urgent (10:53 11/24/2016 utchinson DO) (Ack 10:55 OHdionicionandez) (11:18 JBest R.N.) NPO (10:53 11/24/2016 PHwichinson DO) (Ack 11:15 OHdionicionandez) (11:18 JBest R.N.) CT Abd/Pel w Cont (No) (N/A) (RLQ; had prior inguinal hernia surgery) Urgent (10:53 11/24/2016 PHutchinson DO) (Ack 10:56 OHdionicionandez) (11:18 JBest R.N.) GC/Chlamydia (Penis) (penis) Urgent (13:06 [facility]24/2016 [facility] (Ack 13:13 OHmichelle) (13:17 JBest R.N.) MEDICATION ORDERS: IV FLUIDS: IV NS : initial bolus 1000 mL (1000 mL/hr), then 250 mL/hr for X4 (NOW) (10:53 11/24/2016 [facility]) (11:30 Emilie R.N.) Zofran IV 4 mg (NOW) (10:53 11/24/2016 [facility]) (Ack 11:39 Emilie R.N.) Dilaudid IV 0.5 mg (may repeat x 2 prn pain) (10:53 11/24/2016 [facility]) (Ack 11:39 Emilie R.N.) ORDER SHEET NOTES: [Electronically signed by Artemio Vuong DO (17:05 11/24/2016)] [Electronically signed by Agnes Bowling R.N. (19:12 11/24/2016)] [Electronically locked/signed by Agnes Bowling R.N. (19:12 11/24/2016)]
--- NOTE | 2016-11-24 13:08 | ED NURSING NOTES ---
Clinical Report - Nurses [facility] [address] [place] [address] 11/24/2016 10:30 Patient: BRAULIO GLASS TRIAGE Triage time 10:36. Acuity: LEVEL 3. Chief Complaint: ABDOMINAL PAIN. Alert. No acute distress. --10:46 Agnes Bowling R.N. 10:36 11/24/16. BP: 137/93. HR: 75. RR: 16. O2 saturation: 97% on room air. Temp: 98.3 F. Pain level now: 11/03. --10:46 Agnes Bowling R.N. Weight: 79.3 kg stated. Height/Length: 70 inches Per Patient. BMI: 25.1. --11:05 Agnes Bowling R.N. Medications None. --10:39 Agnes Bowling R.N. Allergies No Known Drug Allergy. --10:39 Agnes Bowling R.N. History Arrived by private vehicle. Historian: patient. Primary physician (No PCP). Onset. (about 1 weeks ago). Describes the quality as cramping. Relates location as in the right lower quadrant. Notes pain level as 3/10 on arrival and 5/10 at maximum. ( He had mesh placed during hernia repair to the same area as the pain 4 years ago.). Reports last BM was 1 days ago. Last oral intake by patient was dinner last night. It is described as radiating to the groin. 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 PAST MEDICAL HX: Immunizations: status is unknown. SURGERY HX: Inguinal hernia repair. SOCIAL HX: Former smoker, end date 2013. No alcohol use or drug use. SELF HARM ASSESSMENT: A self harm assessment was performed. The patient answered "no" to the question "Do you have thoughts of harming or killing yourself?". FALL RISK ASSESSMENT: Fall risk assessment completed. No fall risk identified. --10:46 Agnes Bowling R.N. Interventions ID band on patient. To room. --10:46 Agnes Bowling R.N. PHYSICAL ASSESSMENT Ambulatory to room. GENERAL / NEURO / PSYCH: Alert. Oriented X 4. Appears in no acute distress. HEENT: Mucous membranes are pink. RESPIRATORY: Respirations not labored. Breath sounds within normal limits. GI / : Abdomen soft and nontender. Bowel sounds within normal limits. SKIN: Skin is warm and dry. --10:47 Agnes Bowling R.N. NURSING PROGRESS NOTES Patient gowned. Patient identifiers checked. Call light placed in reach. Side rails up. Bed placed in lowest position. Brakes of bed on. Patient ready for evaluation- ED physician notified. --10:47 Agnes Bowling R.N. 11:17 11/24/2016 Site #1 started via IV in the right forearm with an 20g angiocath, with aseptic technique and good blood return; one attempt. Blood drawn: rainbow set. Labeled in the presence of the patient and sent to the lab. Saline lock flushed with 10 mL saline. --11:17 Agnes Bowling R.N. Patient walked to [place] with tech. (11:17). --11:18 Agnes Bowling R.N. 11:29 11/24/2016 Started bag #1 1000 mL IV Fluids IV NS (Saline); bolus of 1000 mL over 1 hour(s) via site #1 via IV pump. Allergies verified and confirmed 5 rights. IV patency established. IV site checked: no pain, redness, or swelling. IV flushed thoroughly pre- and post-medication administration. --11:30 Agnes Bowling R.N. Patient walked back to ED from [place] with tech. (1126). --11:34 Agnes Bowling R.N. ( pt offered zofran and dilaudid but he declined both at this time). --11:36 Agnes Bowling R.N. ( checked on pt, he says he is doing well, resting, declined pain/nausea medication). --12:09 Agnes Bowling R.N. 12:32 11/24/2016 Started bag #2 1000 mL IV Fluids IV NS (Saline); at 250 mL/hr via site #1 --12:32 Agnes Bowling R.N. DISPOSITION / DISCHARGE 13:31 11/24/16. BP: 122/83. HR: 62. RR: 16. O2 saturation: 99%. Temp: 98.6 F. Pain level now: 10/06. --13:33 Agnes Bowling R.N. 13:34 11/24/2016 Site #1 removed upon discharge. Catheter intact. Bandaid applied. --13:34 Agnes Bowling R.N. 13:34 11/24/2016 IV Fluids IV NS Discontinued: bag #2 discontinued upon discharge. Total amount infused: 250 mL. IV patency established. IV site checked: no pain, redness, or swelling. IV flushed thoroughly. --13:34 Agnes Bowling R.N. 13:35. Departure time: 13:44. Condition at departure: unchanged and stable. No learning barriers present. Discharge instructions provided and reviewed with the patient. Reviewed medication(s). Reviewed referrals. Work note given. Patient verbalized understanding. Written instructions provided in Hungarian. The patient was discharged by the physician. He was discharged home. He left the Emergency Department ambulatory and via private vehicle. Patient driving. --13:45 Agnes Bowling R.N. Locked/Released at 11/24/2016 19:12 by Agnes Bowling R.N.
--- NOTE | 2016-11-24 13:08 | ED CLINICAL REPORT ---
Clinical Report - Physicians/Mid Levels [facility] [address] [place] [address] 11/24/2016 10:30 Patient: BRAULIO GLASS Time Seen: 10:51. Arrived- By private vehicle. Historian- patient. HISTORY OF PRESENT ILLNESS Chief Complaint: ABDOMINAL PAIN. At its maximum, severity described as moderate. When seen in the E.D., severity described as moderate. Modifying factors- worsened by movement. Relieved by rest. It is described as "pain" and it is described as located in the right lower quadrant and radiating to the groin. This started about 1 week ago and is still present. It was gradual in onset and has been waxing/waning. No nausea, vomiting or diarrhea. (He had mesh placed during hernia repair to the same area as the pain 4 years ago Reports last BM was 1 days ago. Last oral intake by patient was dinner last night. It is described as radiating to the groin). Similar symptoms previously: Recent medical care: The patient was seen recently at this facility in the emergency department. Seen for other problems. Diagnosis: (Migraine WHITE). REVIEW OF SYSTEMS The patient has had constipation and back pain. No black stools, hematemesis, difficulty with urination, urinary frequency or bloody stools. No fever, headache, sore throat, chest pain or difficulty breathing. No cough. The patient has had pain on urination (may have some dysuria, but may be pain radiating to the penis - he is not sure; no penile discharge). Last bowel movement: yesterday. All systems otherwise negative, except as recorded above. PAST HISTORY Dental pain Back pain Kidney stones. Surgeries: Prior abdominal surgery: hernia surgery. Medications: None. Allergies: No Known Drug Allergy. SOCIAL HISTORY Smoker- current status unknown. No alcohol use or drug use. Is a local resident. ADDITIONAL NOTES The nursing notes have been reviewed. PHYSICAL EXAM Vital Signs: 11/24/2016 10:36 BP: 137/93. HR: 75. RR: 16. O2 saturation: 97%. Temp: 98.3 F. Pain level now: 11/03. Appearance: Alert. Oriented X3. No acute distress. Eyes: Pupils equal, round and reactive to light. Eyes normal inspection. No scleral icterus or pale conjunctivae. ENT: Nose normal. Pharynx normal. No pharyngeal erythema or tonsillar exudate. The mucous membranes are not dry. Neck: Normal inspection. Neck supple. CVS: Normal heart rate and rhythm. Heart sounds normal. Pulses normal. Respiratory: No respiratory distress. Breath sounds normal. Abdomen: Soft. Mild tenderness in the right lower quadrant and lower abdomen. Bowel sounds normal. No organomegaly. No mass. No rebound tenderness or guarding. Back: Normal inspection. : Normal genitalia. Testes descended. Skin: Skin warm and dry. Normal skin color. No rash. Normal skin turgor. Extremities: Extremities exhibit normal ROM. No lower extremity edema. Neuro: Oriented X 3. No motor deficit. LABS, X-RAYS, AND EKG Abdominal CT: IMPRESSION: 1. Right inguinal hernia repair with mesh plug. No evidence of recurrent herniation. 2. No CT evidence of acute appendicitis. 3. Minor hepatomegaly and hepatic steatosis. 4. Nonobstructing 2 mm right lower pole intrarenal calculus. Study type: abdomen and pelvis. Abdominal CT performed with IV contrast. The study was independently viewed by me, interpreted by the radiologist and discussed with the radiologist. Laboratory Tests: UA-Culture if indicated: (NADJA: 11/24/2016 10:40) ( MsgRcvd 11/24/2016 11:22) Final results Test Result Flag Units (Reference) URINE COLOR YELLOW URINE APPEARANCE CLEAR URINE GLUCOSE NEGATIVE (NEGATIVE) URINE BILIRUBIN NEGATIVE (NEGATIVE) URINE KETONE NEGATIVE (NEGATIVE) URINE SPECIFIC GRAVITY 1.015 (1.010-1.030) URINE PH 7.0 (5.0-8.0) URINE PROTEIN NEGATIVE (NEGATIVE) URINE UROBILINOGEN 2.0 EU/dL (0.2-1.0) The urobilinogen reagent area may react with interferingsubstances known to react with Mechelle's reagent such asp-aminosalicylic acid and sulfonamides. Atypical colorreactions may be obtained in the presence of highconcentrations of p-aminobenzoic acid. The absence ofurobilinogen cannot be determined with this test. URINE NITRITE NEGATIVE (NEGATIVE) URINE BLOOD NEGATIVE (NEGATIVE) URINE LEUK ESTERASE NEGATIVE (NEGATIVE) URINE RBC NONE SEEN rbc/hpf (0-1) URINE WBC NONE SEEN wbc/hpf (0-1) URINE EPITHELIAL CELLS NONE SEEN EPI/hpf (0-5) URINE BACTERIA NONE SEEN (NONE SEEN) URINE COMMENT CULT NOT INDICATED 1+ AMORPHOUS CRYSTALSURINE CULTURES ARE SET-UP BASED ON THE FOLLOWING CRITERIA:POSITIVE NITRITEPOSITIVE LEUKOCYTE ESTERASEGREATER THAN 10 WHITE BLOOD CELLSMODERATE (2+) OR GREATER BACTERIA CBC w Diff: (NADJA: 11/24/2016 11:10) ( [facility] 11/24/2016 11:26) Final results Test Result Flag Units (Reference) WHITE BLOOD COUNT 6.6 K/uL (4.5-11.5) RED BLOOD COUNT 5.18 M/uL (4.50-5.90) HEMOGLOBIN 15.9 gm/dL (13.5-17.5) HEMATOCRIT 46.8 % (41.0-53.0) MEAN CELL VOLUME 90 fL (80-100) MEAN CORPUSCULAR HGB 31 pg (26-34) MEAN CORPUSCULAR HGB CONC 34 g/dL (31-37) RED CELL DISTRIBUTION WIDTH 12.4 % (11.6-14.8) PLATELET COUNT 288 K/uL (150-400) NEUTROPHIL % 49.6 L % (50-75) LYMPH % 39.3 % (25-40) MONO % 9.0 % (3-14) EOSINOPHIL % 1.8 % (0-4) BASOPHIL % 0.3 % (0-2) PT with INR: (NADJA: 11/24/2016 11:10) ( [facility] [place] 11/24/2016 11:31) Final results Test Result Flag Units (Reference) INR 0.9 (0.8-1.2) Low Intensity Therapy: INR 1.5-2.0 PT range 18.5-23.1Mod.Intensity Therapy: INR 2.0-3.0 PT range 23.1-31.5High Intensity Therapy: INR 2.5-3.5 PT range 27.4-35.5High Intensity Therapy 2: INR 3.0-4.0 PT range 31.5-39.3 CMP: (NADJA: 11/24/2016 11:10) ( MsgRcvd 11/24/2016 11:35) Final results Test Result Flag Units (Reference) GLUCOSE 93 mg/dL (70-110) BUN 10 mg/dL (7-18) CREATININE 0.9 mg/dL (0.6-1.3) Estimated GFR >60 mL/min Estimated GFR- >60 mL/min Note: Persistent reduction over 3 months in eGFR<60 mL/min/1.73 m2 defines CKD. Patients with eGFR values>=60 mL/min/1.73 m2 may also have CKD if evidence ofpersistent proteinuria. Additional information may be foundat www.kidney.org. SODIUM 138 mmol/L (136-145) POTASSIUM 4.0 mmol/L (3.5-5.1) CHLORIDE 103 mmol/L (98-107) CARBON DIOXIDE 26 mmol/L (21-32) CALCIUM 9.3 mg/dL (8.5-10.1) TOTAL PROTEIN 8.0 g/dL (6.4-8.2) ALBUMIN 4.3 g/dL (3.3-5.0) BILIRUBIN, TOTAL 0.6 mg/dL (0.0-1.0) ALKALINE PHOSPHATASE 80 U/L (46-116) AST (SGOT) 26 U/L (15-37) ALT (SGPT) 60 U/L (12-78) LIPASE 89 U/L (73-393) AMYLASE 55 U/L (25-115) . Microbiology: Urethral culture ordered (GC culture and chlamydia culture). Pulse Oximetry: 11/24/2016 10:36 O2 saturation: 97%. (FIO2 - room air). Interpretation: normal. PROGRESS AND PROCEDURES Course of Care: Normal Saline 1 liter IVPB given. Azithromycin 1 gm PO given. Zofran 4 mg IVP given. Ceftriaxone 500mg IM given. Dilaudid 0.5 mg IVP given. 13:06 11/24/16. Patient is stable. Physical exam findings are improved. Symptoms much better. Pain may be due to the mesh in the RLQ - hernia repair area. No signs of significant inflammation or recurrent hernia. Appendix is not well seen, but there is certainly no sign of appendicitis on CT. He has evident constipation as well. He has some symptoms of discomfort in the penis - may have STD (unprotected sex). He may also have had a recent kidney stone, but this is not evident on his CT or UA now and with mild persistent pain in the RLQ area, this is not due to a current kidney stone (would have passed). Patient/family counseled. Old ED records reviewed. Disposition: Discharged. Condition: stable and improved. CLINICAL IMPRESSION Acute right lower quadrant abdominal pain of unknown cause. Possible constipation Suspect pain due to irritation from prior hernia mesh. INSTRUCTIONS Do not work for three days. Drink plenty of fluids. Warnings: Further evaluation is necessary in order to recheck abnormal lab, obtain test results, conduct further tests and assess the possibility of serious illness. It is very important to follow up with a physician. CONTROLLED SUBSTANCE WARNINGS. GENERAL WARNINGS: Return or contact your physician immediately if your condition worsens or changes unexpectedly, if not improving as expected, or if other problems arise. Prescription Medications: Hydrocodone/APAP 5mg / 325mg: take 1 orally every 8 hours as needed for pain. Dispense ten (10). No refill. Ibuprofen 600mg tablets: take 1 tablet orally every 8 hours as needed for pain. Dispense thirty (30). No refills. Follow-up with: Melo Guaman MD, Internal Medicine, , [facility], [address] [place] [address] Follow up. Call for the next available appointment. Reason for referral: There are new providers taking over for Dr Guaman and Robert at this clinic. There are also other [facility]. Follow-up with: Artemio Moseley MD, General Surgeon, , [facility], [address] [place] [address] Follow up in about three days. (Electronically signed by Artemio Vuong DO 11/24/2016 17:05)
--- NOTE | 2016-11-24 13:08 | ED NURSING NOTES ---
Clinical Report - Nurses [facility] [address] [place] [address] 11/24/2016 10:30 Patient: BRAULIO GLASS TRIAGE Triage time 10:36. Acuity: LEVEL 3. Chief Complaint: ABDOMINAL PAIN. Alert. No acute distress. --10:46 Agnes Bowling R.N. 10:36 11/24/16. BP: 137/93. HR: 75. RR: 16. O2 saturation: 97% on room air. Temp: 98.3 F. Pain level now: 11/03. --10:46 Agnes Bowling R.N. Weight: 79.3 kg stated. Height/Length: 70 inches Per Patient. BMI: 25.1. --11:05 Agnes Bowling R.N. Medications None. --10:39 Agnes Bowling R.N. Allergies No Known Drug Allergy. --10:39 Agnes Bowling R.N. History Arrived by private vehicle. Historian: patient. Primary physician (No PCP). Onset. (about 1 weeks ago). Describes the quality as cramping. Relates location as in the right lower quadrant. Notes pain level as 3/10 on arrival and 5/10 at maximum. ( He had mesh placed during hernia repair to the same area as the pain 4 years ago.). Reports last BM was 1 days ago. Last oral intake by patient was dinner last night. It is described as radiating to the groin. 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 PAST MEDICAL HX: Immunizations: status is unknown. SURGERY HX: Inguinal hernia repair. SOCIAL HX: Former smoker, end date 2013. No alcohol use or drug use. SELF HARM ASSESSMENT: A self harm assessment was performed. The patient answered "no" to the question "Do you have thoughts of harming or killing yourself?". FALL RISK ASSESSMENT: Fall risk assessment completed. No fall risk identified. --10:46 Agnes Bowling R.N. Interventions ID band on patient. To room. --10:46 Agnes Bowling R.N. PHYSICAL ASSESSMENT Ambulatory to room. GENERAL / NEURO / PSYCH: Alert. Oriented X 4. Appears in no acute distress. HEENT: Mucous membranes are pink. RESPIRATORY: Respirations not labored. Breath sounds within normal limits. GI / : Abdomen soft and nontender. Bowel sounds within normal limits. SKIN: Skin is warm and dry. --10:47 Agnes Bowling R.N. NURSING PROGRESS NOTES Patient gowned. Patient identifiers checked. Call light placed in reach. Side rails up. Bed placed in lowest position. Brakes of bed on. Patient ready for evaluation- ED physician notified. --10:47 Agnes Bowling R.N. 11:17 11/24/2016 Site #1 started via IV in the right forearm with an 20g angiocath, with aseptic technique and good blood return; one attempt. Blood drawn: rainbow set. Labeled in the presence of the patient and sent to the lab. Saline lock flushed with 10 mL saline. --11:17 Agnes Bowling R.N. Patient walked to [place] with tech. (11:17). --11:18 Anges Bowling R.N. 11:29 11/24/2016 Started bag #1 1000 mL IV Fluids IV NS (Saline); bolus of 1000 mL over 1 hour(s) via site #1 via IV pump. Allergies verified and confirmed 5 rights. IV patency established. IV site checked: no pain, redness, or swelling. IV flushed thoroughly pre- and post-medication administration. --11:30 Agnes Bowling R.N. Patient walked back to ED from [place] with tech. (1126). --11:34 Agnes Bowling R.N. ( pt offered zofran and dilaudid but he declined both at this time). --11:36 Agnes Bowling R.N. ( checked on pt, he says he is doing well, resting, declined pain/nausea medication). --12:09 Agnes Bowling R.N. 12:32 11/24/2016 Started bag #2 1000 mL IV Fluids IV NS (Saline); at 250 mL/hr via site #1 --12:32 Agnes Bowling R.N. DISPOSITION / DISCHARGE 13:31 11/24/16. BP: 122/83. HR: 62. RR: 16. O2 saturation: 99%. Temp: 98.6 F. Pain level now: 10/06. --13:33 Agnes Bowling R.N. 13:34 11/24/2016 Site #1 removed upon discharge. Catheter intact. Bandaid applied. --13:34 Agnes Bowling R.N. 13:34 11/24/2016 IV Fluids IV NS Discontinued: bag #2 discontinued upon discharge. Total amount infused: 250 mL. IV patency established. IV site checked: no pain, redness, or swelling. IV flushed thoroughly. --13:34 Agnes Bowling R.N. 13:35. Departure time: 13:44. Condition at departure: unchanged and stable. No learning barriers present. Discharge instructions provided and reviewed with the patient. Reviewed medication(s). Reviewed referrals. Work note given. Patient verbalized understanding. Written instructions provided in Romanian. The patient was discharged by the physician. He was discharged home. He left the Emergency Department ambulatory and via private vehicle. Patient driving. --13:45 Agnes Bowling R.N. Locked/Released at 11/24/2016 19:12 by Agnes Bowling R.N.
--- NOTE | 2016-11-24 19:13 | ED MAR SUMMARY ---
..... Medication Administration Record [facility] [address] [place] [address] Patient: BRAULIO GLASS Visit ID: [id number] [id number], M Weight: 79.3 kg Height/Length: 70 in BMI: 25.1 ALLERGIES: No Known Drug Allergy Start 11:29 11/24/2016 Agnes Bowling R.N. Medication Administered: IV NS (SALINE), Dose: IV Fluids, Bolus: 1000 mL over 1 hour(s), Dispensed: 1000 mL bag, Site: #1 right forearm. Medication Ordered: IV NS : initial bolus 1000 mL (1000 mL/hr), then 250 mL/hr for X4 (NOW). Start 12:32 11/24/2016 Agnes Bowling R.N., Stop 13:34 11/24/2016 Agnes Bowling R.N. Medication Administered: IV NS (SALINE), Dose: IV Fluids, Rate: 250 mL/hr, Dispensed: 1000 mL bag, Site: #1 right forearm. Medication Ordered: IV NS : initial bolus 1000 mL (1000 mL/hr), then 250 mL/hr for X4 (NOW).
--- NOTE | 2016-11-24 19:13 | ED DISCHARGE INSTRUCTIONS ---
Patient: BRAULIO GLASS General Instructions [facility] VisitID: [id number] [address] [place] [address] 36y, M Registration Date/Time: 11/24/2016 Acute right lower quadrant abdominal pain of unknown cause. Suspect pain due to irritation from prior hernia mesh. INSTRUCTIONS Do not work for three days. Drink plenty of fluids. Warnings: Further evaluation is necessary in order to recheck abnormal lab, obtain test results, conduct further tests and assess the possibility of serious illness. It is very important to follow up with a physician. CONTROLLED SUBSTANCE WARNINGS. GENERAL WARNINGS: Return or contact your physician immediately if your condition worsens or changes unexpectedly, if not improving as expected, or if other problems arise. Prescription Medications: Hydrocodone/APAP 5mg / 325mg: take 1 orally every 8 hours as needed for pain. Dispense ten (10). No refill. Ibuprofen 600mg tablets: take 1 tablet orally every 8 hours as needed for pain. Dispense thirty (30). No refills. Follow-up with: Melo Guaman MD, Internal Medicine, , [facility], [address] [place] [address] Follow up. Call for the next available appointment. Reason for referral: There are new providers taking over for Dr Guaman and Robert at this clinic. There are also other [facility]. Follow-up with: Artemio Moseley MD, General Surgeon, , [facility], [address] [place] [address] Follow up in about three days. ADDITIONAL INFORMATION Abdominal Pain,Uncertain Cause [Male] Based on your visit today, the exact cause of your abdominalpain is not clear. Your exam and tests do not indicate a dangerous cause at this time. However, the signs of a serious problem may take more time to appear. Although your evaluation was reassuring today, sometimes early in the course of many conditions, exam and lab tests can appear normal. Therefore, it is important for you to watch for any new symptoms or worsening of your condition. Causes It may not be obvious what caused your symptoms. Pay attention to things that do seem to make your symptoms worse or better and discuss this with your doctor when you follow up. Diagnosis The evaluation of abdominal pain in the emergency department may onlyrequire an exam by the doctor or it may include blood, urine or imaging studies, depending on many factors. Sometimes exams and tests can identify a cause but in many cases, a clear cause is not found. Further testing at follow up visits may help to suggest a clear diagnosis. Home Care Rest as much as possible until your next exam. Try to avoid any medications (unless otherwise directed by your doctor), foods, activities, or other factors that you may have contributed to your symptoms. Try to eat foods that you know that you have tolerated well in the past. Certain diets may be recommended for some conditions that cause abdominal pain. However, since the cause of your symptoms may not be clear, discuss your diet more with your primary care provider or specialist for further recommendations. Eating several small meals per day as opposed to 2 or 3 larger meals may help. Monitor closely for anything that may make your symptoms worse or better. Pay close attention to symptoms below that may indicate worsening of your condition. Follow Up and Precautions See your doctoras instructed or sooneror if your symptoms are not improving.In some cases, you may need more testing. When to Seek Medical Attention Contact your doctor or see medical attention ifany of the following occur: Pain is becoming worse You are unable to take your medications due to excessive vomiting Swelling of the abdomen Fever of 100.4F (38C) or higher, or as directed by your health care provider Blood in vomit or bowel movements (dark red or black color) Jaundice (yellow color of eyes and skin) New onset of weakness, dizziness or fainting New onset of chest, arm, back, neck or jaw pain Constipation (Adult) Constipation is bowel movements that are less frequent than usual. Stools often become very hard and difficult to pass. This may lead to abdominal pain and bloating. It may also cause painful bowel movements. Constipation may be due to a diet thats low in fiber. Some medications, especially pain medications, can also cause it. Constipation may be treated with enemas, suppositories, laxatives or stool softeners. Your doctor will advise you which will work best for you. Follow the advice below to help avoid this problem in the future. Home Care Medication: Take any medicines as directed. Some laxatives are safe only for occasional use. Others can be taken on a regular basis. Talk to your doctor or pharmacist if you have questions. General Care: Prescription pain medications can cause constipation. If you are prescribed pain medications, ask the doctor whether you should also take a stool softener. A diet high in fiber with plenty of fluids helps to maintain regular, soft bowel movements. The following foods are good sources of dietary fiber: Cereals and breads: Whole grain cereal with bran, oatmeal, rolled oats, whole grain breads Fruits: All fruits (fresh and dried), raisins, prunes, apricots, berries, figs Vegetables: Any fresh vegetables, especially peas, broccoli, brussels sprouts, winter squash, green beans, cauliflower, edwards beans, carrots Other: Popcorn, brown rice Drink plenty of water when you increase the amount of fiber you eat. Follow Up with your doctor or return to this facility if symptoms do not improve in the next few days. You may require further tests or a referral to a specialist. Get Prompt Medical Attention if any of the following occur: Fever over 100.4F (38C) Failure to resume normal bowel movements Increasing abdominal or back pain Nausea or vomiting Abdominal swelling Blood in the stool Weakness, dizziness or fainting Unexpected vaginal bleeding Hydrocodone Bitartrate, Acetaminophen Oral tablet What is this medicine? ACETAMINOPHEN; HYDROCODONE (a set a NORMA brijesh fen; jaret droe KOE done) is a pain reliever. It is used to treat mild to moderate pain. How should I use this medicine? Take this medicine by mouth. Swallow it with a full glass of water. Follow the directions on the prescription label. If the medicine upsets your stomach, take the medicine with food or milk. Do not take more than you are told to take. Talk to your nail specialist regarding the use of this medicine in children. This medicine is not approved for use in children. What side effects may I notice from receiving this medicine? Side effects that you should report to your doctor or health child care attendant as soon as possible: allergic reactions like skin rash, itching or hives, swelling of the face, lips, or tongue breathing problems confusion feeling faint or lightheaded, falls stomach pain yellowing of the eyes or skin Side effects that usually do not require medical attention (report to your doctor or health child care attendant if they continue or are bothersome): nausea, vomiting stomach upset What may interact with this medicine? alcohol antihistamines isoniazid medicines for depression, anxiety, or psychotic disturbances medicines for sleep muscle relaxants naltrexone narcotic medicines (opiates) for pain phenobarbital ritonavir tramadol What if I miss a dose? If you miss a dose, take it as soon as you can. If it is almost time for your next dose, take only that dose. Do not take double or extra doses. Where should I keep my medicine? Keep out of the reach of children. This medicine can be abused. Keep your medicine in a safe place to protect it from theft. Do not share this medicine with anyone. Selling or giving away this medicine is dangerous and against the law. Store at room temperature between 15 and 30 degrees C (59 and 86 degrees F). Protect from light. Keep container tightly closed. Throw away any unused medicine after the expiration date. Discard unused medicine and used packaging carefully. Pets and children can be harmed if they find used or lost packages. What should I tell my health care provider before I take this medicine? They need to know if you have any of these conditions: brain tumor Crohn's disease, inflammatory bowel disease, or ulcerative colitis drink more than 3 alcohol-containing drinks per day drug abuse or addiction head injury heart or circulation problems kidney disease or problems going to the bathroom liver disease lung disease, asthma, or breathing problems an unusual or allergic reaction to acetaminophen, hydrocodone, other opioid analgesics, other medicines, foods, dyes, or preservatives or trying to get breast-feeding What should I watch for while using this medicine? Tell your doctor or health child care attendant if your pain does not go away, if it gets worse, or if you have new or a different type of pain. You may develop tolerance to the medicine. Tolerance means that you will need a higher dose of the medicine for pain relief. Tolerance is normal and is expected if you take the medicine for a long time. Do not suddenly stop taking your medicine because you may develop a severe reaction. Your body becomes used to the medicine. This does NOT mean you are addicted. Addiction is a behavior related to getting and using a drug for a non-medical reason. If you have pain, you have a medical reason to take pain medicine. Your doctor will tell you how much medicine to take. If your doctor wants you to stop the medicine, the dose will be slowly lowered over time to avoid any side effects. You may get drowsy or dizzy when you first start taking the medicine or change doses. Do not drive, use machinery, or do anything that may be dangerous until you know how the medicine affects you. Stand or sit up slowly. There are different types of narcotic medicines (opiates) for pain. If you take more than one type at the same time, you may have more side effects. Give your health care provider a list of all medicines you use. Your doctor will tell you how much medicine to take. Do not take more medicine than directed. Call emergency for help if you have problems breathing. The medicine will cause constipation. Try to have a bowel movement at least every 2 to 3 days. If you do not have a bowel movement for 3 days, call your doctor or health child care attendant. Too much acetaminophen can be very dangerous. Do not take Tylenol (acetaminophen) or medicines that contain acetaminophen with this medicine. Many non-prescription medicines contain acetaminophen. Always read the labels carefully. Ibuprofen Oral tablet What is this medicine? IBUPROFEN (eye BYOO proe fen) is a non-steroidal anti-inflammatory drug (NSAID). It is used for dental pain, fever, headaches or migraines, osteoarthritis, rheumatoid arthritis, or painful monthly periods. It can also relieve minor aches and pains caused by a cold, flu, or sore throat. How should I use this medicine? Take this medicine by mouth with a glass of water. Follow the directions on the prescription label. Take this medicine with food if your stomach gets upset. Try to not lie down for at least 10 minutes after you take the medicine. Take your medicine at regular intervals. Do not take your medicine more often than directed. A special MedGuide will be given to you by the pharmacist with each prescription and refill. Be sure to read this information carefully each time. Talk to your nail specialist regarding the use of this medicine in children. Special care may be needed. What side effects may I notice from receiving this medicine? Side effects that you should report to your doctor or health child care attendant as soon as possible: allergic reactions like skin rash, itching or hives, swelling of the face, lips, or tongue black or bloody stools, blood in the urine or in vomit breathing problems changes in vision chest pain general ill feeling or flu-like symptoms nausea or vomiting redness, blistering, peeling or loosening of the skin, including inside the mouth slurred speech or weakness on one side of the body stomach pain unexplained weight gain or swelling unusually weak or tired yellowing of eyes or skin Side effects that usually do not require medical attention (report to your doctor or health child care attendant if they continue or are bothersome): constipation or diarrhea dizziness gas or heartburn stomach upset What may interact with this medicine? Do not take this medicine with any of the following medications: cidofovir ketorolac methotrexate pemetrexed This medicine may also interact with the following medications: alcohol aspirin diuretics lithium other drugs for inflammation like prednisone warfarin What if I miss a dose? If you miss a dose, take it as soon as you can. If it is almost time for your next dose, take only that dose. Do not take double or extra doses. Where should I keep my medicine? Keep out of the reach of children. Store at room temperature between 15 and 30 degrees C (59 and 86 degrees F). Keep container tightly closed. Throw away any unused medicine after the expiration date. What should I tell my health care provider before I take this medicine? They need to know if you have any of these conditions: asthma cigarette smoker drink more than 3 alcohol containing drinks a day heart disease or circulation problems such as heart failure or leg edema (fluid retention) high blood pressure kidney disease liver disease stomach bleeding or ulcers an unusual or allergic reaction to ibuprofen, aspirin, other NSAIDS, other medicines, foods, dyes, or preservatives or trying to get breast-feeding What should I watch for while using this medicine? Tell your doctor or healthcare professional if your symptoms do not start to get better or if they get worse. This medicine does not prevent heart attack or stroke. In fact, this medicine may increase the chance of a heart attack or stroke. The chance may increase with longer use of this medicine and in people who have heart disease. If you take aspirin to prevent heart attack or stroke, talk with your doctor or health child care attendant. Do not take other medicines that contain aspirin, ibuprofen, or naproxen with this medicine. Side effects such as stomach upset, nausea, or ulcers may be more likely to occur. Many medicines available without a prescription should not be taken with this medicine. This medicine can cause ulcers and bleeding in the stomach and intestines at any time during treatment. Ulcers and bleeding can happen without warning symptoms and can cause . To reduce your risk, do not smoke cigarettes or drink alcohol while you are taking this medicine. You may get drowsy or dizzy. Do not drive, use machinery, or do anything that needs mental alertness until you know how this medicine affects you. Do not stand or sit up quickly, especially if you are an older patient. This reduces the risk of dizzy or fainting spells. This medicine can cause you to bleed more easily. Try to avoid damage to your teeth and gums when you brush or floss your teeth. You have been given the following additional information: Abdominal Pain, Unknown Cause, (Male) Constipation (Adult) Hydrocodone Bitartrate, Acetaminophen Oral tablet Ibuprofen Oral tablet Do not work for three days. (Electronically signed by Artemio Vuong DO 11/24/2016 17:05)
--- NOTE | 2016-11-24 19:13 | ED MED RECONCILIATION SUMMARY ---
Patient: BRAULIO GLASS Medication Reconciliation Report [facility] VisitID: [id number] [address] [place] [address] 36y, M Registration Date/Time: 11/24/2016 Weight: 79.3 kg Height/Length: 70 in. BMI: 25.1 ALLERGIES: No Known Drug Allergy The patient's Home Medications are listed below: NONE. The source(s) of the original Home Medication information: Not obtained. The following Medications were given to the patient in the Emergency Department: IV NS IV Fluids bolus 1000 mL over 1 hour(s), administered: 11/24/2016 11:29:00 AM IV NS IV Fluids bolus 0, then 250 mL/hr, administered: 11/24/2016 12:32:00 PM The following Medications were prescribed to the patient: Hydrocodone/APAP 5mg / 325mg: take 1 orally every 8 hours as needed for pain. Dispense ten (10). No refill. -- Artemio Vuong DO Ibuprofen 600mg tablets: take 1 tablet orally every 8 hours as needed for pain. Dispense thirty (30). No refills. -- Artemio Vuong DO
--- NOTE | 2016-11-24 19:13 | ED DISCHARGE INSTRUCTIONS ---
Patient: BRAULIO GLASS General Instructions [facility] VisitID: [id number] [address] [place] [address] 36y, M Registration Date/Time: 11/24/2016 Acute right lower quadrant abdominal pain of unknown cause. Suspect pain due to irritation from prior hernia mesh. INSTRUCTIONS Do not work for three days. Drink plenty of fluids. Warnings: Further evaluation is necessary in order to recheck abnormal lab, obtain test results, conduct further tests and assess the possibility of serious illness. It is very important to follow up with a physician. CONTROLLED SUBSTANCE WARNINGS. GENERAL WARNINGS: Return or contact your physician immediately if your condition worsens or changes unexpectedly, if not improving as expected, or if other problems arise. Prescription Medications: Hydrocodone/APAP 5mg / 325mg: take 1 orally every 8 hours as needed for pain. Dispense ten (10). No refill. Ibuprofen 600mg tablets: take 1 tablet orally every 8 hours as needed for pain. Dispense thirty (30). No refills. Follow-up with: Melo Guaman MD, Internal Medicine, , [facility], [address] [place] [address] Follow up. Call for the next available appointment. Reason for referral: There are new providers taking over for Dr Guaman and Robert at this clinic. There are also other [facility]. Follow-up with: Artemio Moseley MD, General Surgeon, , [facility], [address] [place] [address] Follow up in about three days. ADDITIONAL INFORMATION Abdominal Pain,Uncertain Cause [Male] Based on your visit today, the exact cause of your abdominalpain is not clear. Your exam and tests do not indicate a dangerous cause at this time. However, the signs of a serious problem may take more time to appear. Although your evaluation was reassuring today, sometimes early in the course of many conditions, exam and lab tests can appear normal. Therefore, it is important for you to watch for any new symptoms or worsening of your condition. Causes It may not be obvious what caused your symptoms. Pay attention to things that do seem to make your symptoms worse or better and discuss this with your doctor when you follow up. Diagnosis The evaluation of abdominal pain in the emergency department may onlyrequire an exam by the doctor or it may include blood, urine or imaging studies, depending on many factors. Sometimes exams and tests can identify a cause but in many cases, a clear cause is not found. Further testing at follow up visits may help to suggest a clear diagnosis. Home Care Rest as much as possible until your next exam. Try to avoid any medications (unless otherwise directed by your doctor), foods, activities, or other factors that you may have contributed to your symptoms. Try to eat foods that you know that you have tolerated well in the past. Certain diets may be recommended for some conditions that cause abdominal pain. However, since the cause of your symptoms may not be clear, discuss your diet more with your primary care provider or specialist for further recommendations. Eating several small meals per day as opposed to 2 or 3 larger meals may help. Monitor closely for anything that may make your symptoms worse or better. Pay close attention to symptoms below that may indicate worsening of your condition. Follow Up and Precautions See your doctoras instructed or sooneror if your symptoms are not improving.In some cases, you may need more testing. When to Seek Medical Attention Contact your doctor or see medical attention ifany of the following occur: Pain is becoming worse You are unable to take your medications due to excessive vomiting Swelling of the abdomen Fever of 100.4F (38C) or higher, or as directed by your health care provider Blood in vomit or bowel movements (dark red or black color) Jaundice (yellow color of eyes and skin) New onset of weakness, dizziness or fainting New onset of chest, arm, back, neck or jaw pain Constipation (Adult) Constipation is bowel movements that are less frequent than usual. Stools often become very hard and difficult to pass. This may lead to abdominal pain and bloating. It may also cause painful bowel movements. Constipation may be due to a diet thats low in fiber. Some medications, especially pain medications, can also cause it. Constipation may be treated with enemas, suppositories, laxatives or stool softeners. Your doctor will advise you which will work best for you. Follow the advice below to help avoid this problem in the future. Home Care Medication: Take any medicines as directed. Some laxatives are safe only for occasional use. Others can be taken on a regular basis. Talk to your doctor or pharmacist if you have questions. General Care: Prescription pain medications can cause constipation. If you are prescribed pain medications, ask the doctor whether you should also take a stool softener. A diet high in fiber with plenty of fluids helps to maintain regular, soft bowel movements. The following foods are good sources of dietary fiber: Cereals and breads: Whole grain cereal with bran, oatmeal, rolled oats, whole grain breads Fruits: All fruits (fresh and dried), raisins, prunes, apricots, berries, figs Vegetables: Any fresh vegetables, especially peas, broccoli, brussels sprouts, winter squash, green beans, cauliflower, edwards beans, carrots Other: Popcorn, brown rice Drink plenty of water when you increase the amount of fiber you eat. Follow Up with your doctor or return to this facility if symptoms do not improve in the next few days. You may require further tests or a referral to a specialist. Get Prompt Medical Attention if any of the following occur: Fever over 100.4F (38C) Failure to resume normal bowel movements Increasing abdominal or back pain Nausea or vomiting Abdominal swelling Blood in the stool Weakness, dizziness or fainting Unexpected vaginal bleeding Hydrocodone Bitartrate, Acetaminophen Oral tablet What is this medicine? ACETAMINOPHEN; HYDROCODONE (a set a NORMA brijesh fen; jaret droe KOE done) is a pain reliever. It is used to treat mild to moderate pain. How should I use this medicine? Take this medicine by mouth. Swallow it with a full glass of water. Follow the directions on the prescription label. If the medicine upsets your stomach, take the medicine with food or milk. Do not take more than you are told to take. Talk to your director of health care marketing regarding the use of this medicine in children. This medicine is not approved for use in children. What side effects may I notice from receiving this medicine? Side effects that you should report to your doctor or health adult care provider as soon as possible: allergic reactions like skin rash, itching or hives, swelling of the face, lips, or tongue breathing problems confusion feeling faint or lightheaded, falls stomach pain yellowing of the eyes or skin Side effects that usually do not require medical attention (report to your doctor or health adult care provider if they continue or are bothersome): nausea, vomiting stomach upset What may interact with this medicine? alcohol antihistamines isoniazid medicines for depression, anxiety, or psychotic disturbances medicines for sleep muscle relaxants naltrexone narcotic medicines (opiates) for pain phenobarbital ritonavir tramadol What if I miss a dose? If you miss a dose, take it as soon as you can. If it is almost time for your next dose, take only that dose. Do not take double or extra doses. Where should I keep my medicine? Keep out of the reach of children. This medicine can be abused. Keep your medicine in a safe place to protect it from theft. Do not share this medicine with anyone. Selling or giving away this medicine is dangerous and against the law. Store at room temperature between 15 and 30 degrees C (59 and 86 degrees F). Protect from light. Keep container tightly closed. Throw away any unused medicine after the expiration date. Discard unused medicine and used packaging carefully. Pets and children can be harmed if they find used or lost packages. What should I tell my health care provider before I take this medicine? They need to know if you have any of these conditions: brain tumor Crohn's disease, inflammatory bowel disease, or ulcerative colitis drink more than 3 alcohol-containing drinks per day drug abuse or addiction head injury heart or circulation problems kidney disease or problems going to the bathroom liver disease lung disease, asthma, or breathing problems an unusual or allergic reaction to acetaminophen, hydrocodone, other opioid analgesics, other medicines, foods, dyes, or preservatives or trying to get breast-feeding What should I watch for while using this medicine? Tell your doctor or health adult care provider if your pain does not go away, if it gets worse, or if you have new or a different type of pain. You may develop tolerance to the medicine. Tolerance means that you will need a higher dose of the medicine for pain relief. Tolerance is normal and is expected if you take the medicine for a long time. Do not suddenly stop taking your medicine because you may develop a severe reaction. Your body becomes used to the medicine. This does NOT mean you are addicted. Addiction is a behavior related to getting and using a drug for a non-medical reason. If you have pain, you have a medical reason to take pain medicine. Your doctor will tell you how much medicine to take. If your doctor wants you to stop the medicine, the dose will be slowly lowered over time to avoid any side effects. You may get drowsy or dizzy when you first start taking the medicine or change doses. Do not drive, use machinery, or do anything that may be dangerous until you know how the medicine affects you. Stand or sit up slowly. There are different types of narcotic medicines (opiates) for pain. If you take more than one type at the same time, you may have more side effects. Give your health care provider a list of all medicines you use. Your doctor will tell you how much medicine to take. Do not take more medicine than directed. Call emergency for help if you have problems breathing. The medicine will cause constipation. Try to have a bowel movement at least every 2 to 3 days. If you do not have a bowel movement for 3 days, call your doctor or health adult care provider. Too much acetaminophen can be very dangerous. Do not take Tylenol (acetaminophen) or medicines that contain acetaminophen with this medicine. Many non-prescription medicines contain acetaminophen. Always read the labels carefully. Ibuprofen Oral tablet What is this medicine? IBUPROFEN (eye BYOO proe fen) is a non-steroidal anti-inflammatory drug (NSAID). It is used for dental pain, fever, headaches or migraines, osteoarthritis, rheumatoid arthritis, or painful monthly periods. It can also relieve minor aches and pains caused by a cold, flu, or sore throat. How should I use this medicine? Take this medicine by mouth with a glass of water. Follow the directions on the prescription label. Take this medicine with food if your stomach gets upset. Try to not lie down for at least 10 minutes after you take the medicine. Take your medicine at regular intervals. Do not take your medicine more often than directed. A special MedGuide will be given to you by the pharmacist with each prescription and refill. Be sure to read this information carefully each time. Talk to your director of health care marketing regarding the use of this medicine in children. Special care may be needed. What side effects may I notice from receiving this medicine? Side effects that you should report to your doctor or health adult care provider as soon as possible: allergic reactions like skin rash, itching or hives, swelling of the face, lips, or tongue black or bloody stools, blood in the urine or in vomit breathing problems changes in vision chest pain general ill feeling or flu-like symptoms nausea or vomiting redness, blistering, peeling or loosening of the skin, including inside the mouth slurred speech or weakness on one side of the body stomach pain unexplained weight gain or swelling unusually weak or tired yellowing of eyes or skin Side effects that usually do not require medical attention (report to your doctor or health adult care provider if they continue or are bothersome): constipation or diarrhea dizziness gas or heartburn stomach upset What may interact with this medicine? Do not take this medicine with any of the following medications: cidofovir ketorolac methotrexate pemetrexed This medicine may also interact with the following medications: alcohol aspirin diuretics lithium other drugs for inflammation like prednisone warfarin What if I miss a dose? If you miss a dose, take it as soon as you can. If it is almost time for your next dose, take only that dose. Do not take double or extra doses. Where should I keep my medicine? Keep out of the reach of children. Store at room temperature between 15 and 30 degrees C (59 and 86 degrees F). Keep container tightly closed. Throw away any unused medicine after the expiration date. What should I tell my health care provider before I take this medicine? They need to know if you have any of these conditions: asthma cigarette smoker drink more than 3 alcohol containing drinks a day heart disease or circulation problems such as heart failure or leg edema (fluid retention) high blood pressure kidney disease liver disease stomach bleeding or ulcers an unusual or allergic reaction to ibuprofen, aspirin, other NSAIDS, other medicines, foods, dyes, or preservatives or trying to get breast-feeding What should I watch for while using this medicine? Tell your doctor or healthcare professional if your symptoms do not start to get better or if they get worse. This medicine does not prevent heart attack or stroke. In fact, this medicine may increase the chance of a heart attack or stroke. The chance may increase with longer use of this medicine and in people who have heart disease. If you take aspirin to prevent heart attack or stroke, talk with your doctor or health adult care provider. Do not take other medicines that contain aspirin, ibuprofen, or naproxen with this medicine. Side effects such as stomach upset, nausea, or ulcers may be more likely to occur. Many medicines available without a prescription should not be taken with this medicine. This medicine can cause ulcers and bleeding in the stomach and intestines at any time during treatment. Ulcers and bleeding can happen without warning symptoms and can cause . To reduce your risk, do not smoke cigarettes or drink alcohol while you are taking this medicine. You may get drowsy or dizzy. Do not drive, use machinery, or do anything that needs mental alertness until you know how this medicine affects you. Do not stand or sit up quickly, especially if you are an older patient. This reduces the risk of dizzy or fainting spells. This medicine can cause you to bleed more easily. Try to avoid damage to your teeth and gums when you brush or floss your teeth. You have been given the following additional information: Abdominal Pain, Unknown Cause, (Male) Constipation (Adult) Hydrocodone Bitartrate, Acetaminophen Oral tablet Ibuprofen Oral tablet Do not work for three days. (Electronically signed by Artemio Vuong DO 11/24/2016 17:05)
--- NOTE | 2016-11-24 19:13 | ED MAR SUMMARY ---
..... Medication Administration Record [facility] [address] [place] [address] Patient: BRAULIO GLASS Visit ID: [id number] 36y, M Weight: 79.3 kg Height/Length: 70 in BMI: 25.1 ALLERGIES: No Known Drug Allergy Start 11:29 11/24/2016 Agnes Bowling R.N. Medication Administered: IV NS (SALINE), Dose: IV Fluids, Bolus: 1000 mL over 1 hour(s), Dispensed: 1000 mL bag, Site: #1 right forearm. Medication Ordered: IV NS : initial bolus 1000 mL (1000 mL/hr), then 250 mL/hr for X4 (NOW). Start 12:32 11/24/2016 Agnes Bowling R.N., Stop 13:34 11/24/2016 Agnes Bowling R.N. Medication Administered: IV NS (SALINE), Dose: IV Fluids, Rate: 250 mL/hr, Dispensed: 1000 mL bag, Site: #1 right forearm. Medication Ordered: IV NS : initial bolus 1000 mL (1000 mL/hr), then 250 mL/hr for X4 (NOW).
--- NOTE | 2016-11-24 19:13 | ED MED RECONCILIATION SUMMARY ---
Patient: BRAULIO GLASS Medication Reconciliation Report [facility] VisitID: [id number] [address] [place] [address] 36y, M Registration Date/Time: 11/24/2016 Weight: 79.3 kg Height/Length: 70 in. BMI: 25.1 ALLERGIES: No Known Drug Allergy The patient's Home Medications are listed below: NONE. The source(s) of the original Home Medication information: Not obtained. The following Medications were given to the patient in the Emergency Department: IV NS IV Fluids bolus 1000 mL over 1 hour(s), administered: 11/24/2016 11:29:00 AM IV NS IV Fluids bolus 0, then 250 mL/hr, administered: 11/24/2016 12:32:00 PM The following Medications were prescribed to the patient: Hydrocodone/APAP 5mg / 325mg: take 1 orally every 8 hours as needed for pain. Dispense ten (10). No refill. -- Artemio Vuong DO Ibuprofen 600mg tablets: take 1 tablet orally every 8 hours as needed for pain. Dispense thirty (30). No refills. -- Artemio Vuong DO
== END 2016-11-24 13:40 | disposition home or self-care (01) ==
LOC: ED SRH 10:28
DX: R10.31 Right lower quadrant pain (principal); Z87.891 Personal history of nicotine dependence
CPT/HCPCS: 90004; 90100; 91227; 91228; 92235; 92530; 94060; 95059